=== PATIENT | female | born 1985 | race Caucasian/White ===

== ENCOUNTER 2020-01-13 07:15 | Day surgery (SDC) | payer OTHER ==
[~2020-01-13 07:15] MED LIST: Lidocaine 1% 20 ML MDV ONE; Sodium Chloride 0.9% 10 ML ONE; Sodium Tetradecyl Sulfate 1% 20 MG/2 ML SDV ONE
[2020-01-13] MEDS ORDERED: Midazolam 1 MG/ML 2 ML SDV ONE ×2 (07:50→08:59)
[2020-01-13] MEDS ORDERED: fentaNYL 100 MCG/2 ML SDV ONE (07:50)
[2020-01-13] MEDS ORDERED: Propofol 200 MG/20 ML SDV ONE ×3 (07:51→09:18)
[2020-01-13] MEDS ORDERED: Sodium Chloride 0.9% 1,000 ML IV SCH (08:00)
[2020-01-13] MEDS ORDERED: Lidocaine 1% w/EPINEPHrine 50 ML, Sodium Bicarbonate 5 MEQ in Sodium Chloride 0.9% 950 ML INJECT ONE (08:45)
--- NOTE | 2020-01-13 11:50 | OR ---
DATE OF PROCEDURE: 01/13/2020 SURGEON: Nicholas Juan MD PROCEDURES: 1. Radiofrequency ablation of left greater saphenous vein. 2. Sclerotherapy, left leg, multiple. 3. Compression wrap, left leg ([id number]). COMPLICATIONS: None. SWEAT BOX ATTENDANT: None. ANESTHESIA: MAC. PREOPERATIVE DIAGNOSIS: Venous insufficiency with inflammation and pain. POSTOPERATIVE DIAGNOSIS: Venous insufficiency with inflammation and pain. RISKS: Risks, benefits, alternatives, and limitations including, but not limited to infection, bleeding, and deep vein thrombosis formation were explained to the patient, chronic pain, neuropathy, chronic wounds, and other risks not listed here. PROCEDURE IN DETAIL: The patient was placed in a supine position. The left greater saphenous vein was accessed at the distal calf. This was accessed using a 21-gauge needle, then exchanged for a 35,000th wire, then subsequently exchanged for a 7-Pashto sheath. RFA probe was advanced to 3 cm from the saphenofemoral junction. Tumescent fluid was injected in 1 cm jacket around this and verified a second and a third time. Direct even pressure was held. The probe was deployed x2 proximally and distally, and x1 in all other segments. Sheath and device were then removed. Direct pressure was held for 10 minutes. Dermabond was applied. Sclerotherapy was performed in the left leg, there were 6 on the left, using 0.33% sodium tetradactyl, always drawn back to ensure intravascular injection only. No more than 2 mL was injected in 1 location. A 2-layer, 2-stage compression wrapping was then performed in a distal to proximal gradient. This was in a [id number] formation. The patient tolerated the procedure well. Nicholas Juan MD /[id number]
== END 2020-01-13 11:07 | disposition home or self-care (01) ==
LOC: JP.SDS 07:15
PROVIDERS: ATTEND Surgery
DX: I87.2 Venous insufficiency (chronic) (peripheral) (principal); I87.322 Chronic venous hypertension (idiopathic) with inflammation of left lower extremity
CPT/HCPCS: 36465; 36475; 81025; J1642; J2001; J2250; J2704; J3010; J7030; J3490